=== PATIENT | male | born 1990 | race Caucasian/White ===

== ENCOUNTER 2019-05-30 18:35 | Emergency (ER) | payer BC, OTHER ==
[2019-05-30] MEDS ORDERED: Alum Hydrox/Mag Hydrox/Simeth 30 ML, Lidocaine 2% 15 ML PO ONE ×2 (20:02)
--- NOTE | 2019-05-30 20:32 | EDM.PDOC ---
ED HPI GENERAL MEDICAL PROBLEM - General Chief Complaint: Respiratory Problem Stated Complaint: WORKUP FOR [facility] [facility] Time Seen by Provider: 05/30/19 19:55 Source of Information: Reports: Patient, Family () History Limitations: Reports: No Limitations - History of Present Illness INITIAL COMMENTS - FREE TEXT/NARRATIVE: Mr. Munoz is a very pleasant 28-year-old man with a past medical history significant for testicular cancer, status post a left orchiectomy in 2013, but with no other chronic medical issues, not ordinarily on any medications, who states that he developed a headache Sunday night, 05/25/2019, followed by a fever with a Tmax of 103.8 degrees, and a nonproductive cough on 05/26/2019. He also reports having some bilateral rib discomfort when he moves. He had some nausea and watery diarrhea on Sunday and Sunday, but none since. No ear or throat pain. No urinary symptoms. He was seen at the walk-in clinic on 05/28/2019. He states that no tests were performed, but that he was clinically diagnosed with influenza. He was informed that it was too late to be treated with Tamiflu, however, his 3 children are similarly ill with a fever, and they have been given Tamiflu. The patient states that he has been taking Tylenol and ibuprofen, without much relief. He was called back by the walk-in clinic today, and informed them of his headache and body aches, including neck pain, therefore he was directed to come here for a full work-up, that includes blood work, a lumbar puncture, and testing for COVID-19. Here in the ED, the patient is found to be hemodynamically stable, afebrile, saturating 99% on room air. He states that he feels silly being here, as he is not that sick. The patient's PCP is Dr. Roly uGrrola. He received an influenza vaccine this season. Treatments PSYCHIATRIC CNS: Reports: Acetaminophen, NSAIDS Headache Pain Score (Numeric/FACES): 3 Generalized Pain Score (Numeric/FACES): 1 - Related Data Allergies Allergy/AdvReac Type Severity Reaction Status Date / Time No Known Allergies Allergy Verified 05/30/19 19:41 Home Meds: Home Meds . [No Known Home Meds] 12/07/13 [History] Past Medical History Oncologic (Cancer) History: Reports: Other (See Below) (testicular, s/p orchiectomy) - Infectious Disease History Infectious Disease History: Reports: Chicken Pox - Past Surgical History GI Surgical History: Reports: Hernia, Inguinal (bilateral) Oncologic Surgical History: Reports: Other (See Below) (left orchiectomy 2013) Social & Family History - Tobacco Use Smoking Status *Q: Former Smoker Years of Tobacco use: 6 Packs/Tins Daily: 1 Month/Year Tobacco Last Used: Quit 2012 - Caffeine Use Caffeine Use: Reports: Soda - Alcohol Use Alcohol Use History: Yes Alcohol Use Frequency: Socially - Recreational Drug Use Recreational Drug Use: Yes Drug Use in Last 12 Months: No Recreational Drug Type: Reports: Marijuana/Hashish (last smoked in HS) - Living Situation & Occupation Living situation: Reports: , with Spouse, with Family (3 kids) Occupation: Employed ([employer]over [employer]) ED ROS GENERAL - Review of Systems Review Of Systems: Comprehensive ROS is negative, except as noted in HPI. ED EXAM, GENERAL - Physical Exam Exam: See Below Exam Limited By: No Limitations General Appearance: Alert, WD/WN, No Apparent Distress Eye Exam: Bilateral Eye: EOMI, Normal Inspection Ears: Normal External Exam, Normal Canal, Hearing Grossly Normal, Normal TMs Nose: Normal Inspection, Normal Mucosa, No Blood Throat/Mouth: Normal Inspection, Normal Lips, Normal Teeth, Normal Gums, Normal Oropharynx, Normal Voice, No Airway Compromise Head: Atraumatic, Normocephalic Neck: Normal Inspection, Supple (Brudzinski sign absent), Non-Tender, Full Range of Motion. No: Lymphadenopathy (L), Lymphadenopathy (R) Respiratory/Chest: No Respiratory Distress, Lungs Clear, Normal Breath Sounds, No Accessory Muscle Use. No: Decreased Breath Sounds, Crackles, Rhonchi, Wheezing, Stridor, Prolonged Expiration Cardiovascular: Normal Peripheral Pulses, Regular Rate, Rhythm, No Edema, No Gallop, No JVD, No Murmur, No Rub Peripheral Pulses: 4+: Radial (L), Radial (R) GI/Abdominal: Normal Bowel Sounds, Soft, Non-Tender, No Organomegaly, No Distention, No Abnormal Bruit, No Mass (Male) Exam: Deferred Rectal (Males) Exam: Deferred Back Exam: Normal Inspection, Full Range of Motion, NT Extremities: Normal Inspection, Normal Range of Motion, No Pedal Edema, Normal Capillary Refill Neurological: Alert, Oriented, Normal Cognition, No Motor/Sensory Deficits, Other (Kerning sign absent) Psychiatric: Normal Affect Skin Exam: Warm, Dry, Intact, Normal Color, No Rash Course - Vital Signs Last Recorded V/S: Last Vital Signs Temp Pulse 76 05/30/19 19:34 Resp 20 05/30/19 19:34 BP 138/91 H 05/30/19 19:34 Pulse Ox 99 05/30/19 19:34 - Orders/Labs/Meds Orders: Active Orders 24 hr Category Date Time Status EKG Documentation Completion [RC] STAT Care 05/30/19 20:01 Inactive - Re-Assessments/Exams Free Text/Narrative Re-Assessment/Exam: 05/30/19 20:26 I agree with the walk-in clinic's clinical assessment that the patient likely has influenza. I offered to perform an influenza swab on him today, but he declined, since it would only put a name on the illness, but not change our management. Since his physical exam is entirely benign, I do not see an indication for any further work-up. I offered to perform a chest x-ray, but he declined that as well. I will discharge the patient home. He states that he already has permission to stay home from work, and therefore does not need a work note. As for Covid-19, the patient appears to be at relatively low risk for acquisition. I am told that this facility has only 5 test kits in its possession at this time. I don't believe it would be a prudent use of resources to test this patient at this time, since his symptoms are relatively mild. Departure - Departure Time of Disposition: 20:27 Disposition: Home, Self-Care 01 Condition: Good Clinical Impression: Influenza - Discharge Information *PRESCRIPTION DRUG MONITORING PROGRAM REVIEWED*: Not Applicable *COPY OF PRESCRIPTION DRUG MONITORING REPORT IN PATIENT DAYO: Not Applicable Instructions: Influenza, Adult, [id number] Referrals: Roly Gurrola Jr, MD [Primary Care Provider] - Forms: ED Department Discharge Additional Instructions: You were seen in the emergency room for a headache, dry cough, fever, and muscle aches. Based on your history and physical exam, you are most likely suffering from influenza. As discussed, unfortunately, it is too late to treat you with the anti- influenza medicine Tamiflu, and there are no [id number] cough or cold remedies that have been shown to be of benefit in the treatment of influenza - this illness will have to run its course. As you have been doing, you may take [id number] Tylenol or ibuprofen as needed for discomfort. You will probably find that [id number] ibuprofen works better and last longer than Tylenol. Stay adequately hydrated. If any other problems, please do not hesitate to return to the ER. Sepsis Event Note - Evaluation Sepsis Screening Result: No Definite Risk - Focused Exam Vital Signs: Vital Signs Pulse Resp BP Pulse Ox 05/30/19 19:34 76 20 138/91 H 99 Date Exam was Performed: 05/30/19 Time Exam was Performed: 20:36
== END 2019-05-30 20:44 | disposition home or self-care (01) ==
LOC: JD.ED 18:35
DX: J11.1 Influenza due to unidentified influenza virus with other respiratory manifestations (principal); Z87.891 Personal history of nicotine dependence
CPT/HCPCS: 99282; 99283